=== PATIENT | female | born 1945 | race Caucasian/White ===

== ENCOUNTER 2024-04-26 09:54 | Outpatient (CLI) | payer OTHER, MEDICAID ==
[2024-04-26 11:57] LABS: Hematocrit 47.5 % (34.9-44.5); Hemoglobin 14.9 g/dL (12.0-15.5); Mean Corpuscular HGB CONC 31.4 g/dL (32.0-36.0); Mean Corpuscular Hemoglobin 29.6 pg (27.0-33.0); Mean Corpuscular Volume 94.4 fL (81.6-98.3); Mean Platelet Volume 11.3 fL (7.4-10.4); Platelet Count 226 10x3/uL (150-450); RBC Distribution Width 14.7 % (11.5-14.5); Red Blood Cell (RBC) Count 5.03 10x6/uL (3.90-5.03); White Blood Cell (WBC) Count 90.5 10x3/uL (3.5-10.5)
[2024-04-26 12:22] LABS: Anion Gap 15 mmol/L (10-20); BUN (Urea Nitrogen) 18 mg/dL (9.8-20.1); Calc. Creatinine Clearance 0 mL/min (70-130); Carbon Dioxide 27 mmol/L (23-31); Chloride 104 mmol/L (98-107); Estimated GFR 47; Glucose 171 mg/dL (83-110); Potassium 3.7 mmol/L (3.5-5.1); Sodium 142 mmol/L (136-145)
[2024-04-26 12:46] LABS: Lymphocytes 90 % (21-51); Monocytes 1 % (0-10); Neutrophil 7 % (42-75); Other Cell Types 2
[2024-04-26 12:49] LABS: Hypochromia SLIGHT = 6-15 cells (100X) (0-5/hpf); Platelet Adequacy Comment Appears Adequate; Reflex for Review?? YES
[2024-04-26 12:51] LABS: MDiff Complete? YES
== END 2024-04-26 09:55 | disposition home or self-care (01) ==
LOC: LABBT 09:54
PROVIDERS: ATTEND Orthopaedic Surgery Hand Surgery
DX: Z01.818 Encounter for other preprocedural examination (principal); M24.541 Contracture, right hand; M19.031 Primary osteoarthritis, right wrist
CPT/HCPCS: 80048; 85025; 85060; 93005; 93010

== ENCOUNTER 2024-04-28 09:38 | Observation (INO) | payer OTHER, MEDICAID ==
[2024-04-26 10:29] VITALS: BMI 31.6
[2024-04-28] MEDS ORDERED: Phenylephrine 10 MG/ML VIAL ONE (12:37)
[2024-04-28] MEDS ORDERED: Lidocaine 1% PF 5 ML VIAL ONE (12:45)
[2024-04-28] MEDS ORDERED: PHENYLEPHRINE-NS 100 MCG/ML 10 ML SYRINGE ONE (12:45)
[2024-04-28] MEDS ORDERED: ePHEDrine Sulfate 50 MG/10 ML VIAL ONE (12:45)
[2024-04-28] MEDS ORDERED: PROPOFOL 20 ML ONE (12:45)
[2024-04-28] MEDS ORDERED: Ondansetron PF 4 MG/2 ML Vial ONE (12:45)
[2024-04-28] MEDS ORDERED: Sodium Chloride 0.9% 100 ML ONE (12:49)
[2024-04-28] MEDS ORDERED: CEFAZOLIN 2 GM VIAL ONE (12:49)
[2024-04-28] MEDS ORDERED: fentaNYL 50 mcg/mL 1 mL Vial ONE ×4 (12:58→15:36)
[2024-04-28] MEDS ORDERED: Bupivacaine PF 0.5% 30 ML VIAL ONE (13:17)
[2024-04-28] MEDS ORDERED: Thrombin 5000 UNITS/5 ML VIAL ONE (13:17)
[2024-04-28] MEDS ORDERED: Bacitracin Zinc Ointment 30 gm TUBE ONE (13:17)
[2024-04-28] MEDS ORDERED: Acetaminophen 325 MG TAB PO PRN (15:09)
[2024-04-28] MEDS ORDERED: Morphine 4 MG/ML VIAL SLOW IVP PRN (15:09)
[2024-04-28] MEDS ORDERED: Ondansetron PF 4 MG/2 ML Vial IVP PRN (15:09)
[2024-04-28] MEDS ORDERED: Promethazine HCl 25 MG/ML VIAL IM PRN (15:09)
[2024-04-28] MEDS ORDERED: Milk Of Magnesia 30 ML UDCUP PO PRN (15:09)
[2024-04-28] MEDS ORDERED: traMADol HCl 50 MG TAB PO PRN (15:09)
[2024-04-28] MEDS ORDERED: Bisacodyl 10 MG SUPP PR PRN (15:09)
[2024-04-28] MEDS ORDERED: Communication Order-Pharmacy FS SCH (15:15)
[2024-04-28] MEDS ORDERED: ALPRAZolam 0.25 MG TAB PO PRN (15:50)
[2024-04-28] MEDS ORDERED: EPINEPHrine 1 MG/ML VIAL IJ PRN (15:54)
[2024-04-28] MEDS ORDERED: Pantoprazole DR 40 MG TAB PO PRN (15:56)
[2024-04-28] MEDS ORDERED: Ondansetron ODT 4 MG TAB PO PRN (15:56)
[2024-04-28] MEDS ORDERED: traZODone HCl 50 MG TAB PO PRN (15:57)
[2024-04-28] MEDS: Acetaminophen/Codeine 30-300mg Tablet PO PRN (19:16)
[2024-04-28] MEDS: TETANUS, DIPHTHERIA TOX,ADULT (TDVAX) 0.5 ML VIAL IM ONE (19:46)
[2024-04-28] MEDS: Rosuvastatin 20 MG TAB PO SCH (20:32)
[2024-04-28] MEDS: Aspirin 81 mg Enteric Coated Tablet PO SCH (20:32)
[2024-04-28] MEDS: levETIRAcetam 500 MG TAB PO SCH (20:32)
[2024-04-28] MEDS: HYDROcodone/Acetaminophen 5/325 mg Tablet PO PRN (20:44)
[2024-04-28] MEDS: CEFAZOLIN 1 GM in Sodium Chloride 0.9% 100 ML IVPB SCH (20:58)
[2024-04-29 03:45] VITALS: TEMP 98.1
[2024-04-29] MEDS: Levothyroxine Sodium 25 MCG TAB PO SCH (05:13)
[2024-04-29 08:26] VITALS: BP 149/84
[2024-04-29] MEDS: Empagliflozin 10 MG TAB PO SCH (09:00)
[2024-04-29] MEDS: Carvedilol 6.25 MG TAB PO SCH (09:00)
[2024-04-29] MEDS: Losartan 25 MG TAB PO SCH (09:01)
[2024-05-05] MEDS ORDERED: Cyanocobalamin 1000 MCG/ML VIAL SC SCH (09:00)
== END 2024-04-29 11:01 | disposition home or self-care (01) ==
LOC: SDC 09:38 → SJJU 15:55
PROVIDERS: ADMIT Orthopaedic Surgery Hand Surgery; ATTEND Orthopaedic Surgery Hand Surgery
PROC: 0L870ZZ Division of Right Hand Tendon, Open Approach (ICD-10-PCS; principal; 2024-04-28)
PROC: 0LX70ZZ Transfer Right Hand Tendon, Open Approach (ICD-10-PCS; 2024-04-28)
DX: M21.941 Unspecified acquired deformity of hand, right hand (principal); M62.441 Contracture of muscle, right hand; E78.2 Mixed hyperlipidemia; I10 Essential (primary) hypertension; E11.9 Type 2 diabetes mellitus without complications; Z79.84 Long term (current) use of oral hypoglycemic drugs; Z79.899 Other long term (current) drug therapy; Z86.73 Personal history of transient ischemic attack (TIA), and cerebral infarction without residual deficits; Z90.710 Acquired absence of both cervix and uterus; Z90.89 Acquired absence of other organs; Z88.2 Allergy status to sulfonamides
CPT/HCPCS: 25310; 26478 ×2; 93005; J0665; J0690 ×2; J2371; J2405; J2704; J3010; J3490 ×2; 93010